=== PATIENT | female | born 1970 | race Caucasian/White ===

== ENCOUNTER 2024-02-29 13:10 | Emergency (ER) | payer BC, SELFPAY ==
[2024-02-29 13:13] VITALS: BP 135/82
--- NOTE | 2024-02-29 13:44 | ED.SKININJ ---
HPI-Injury
General
Chief Complaint: Skin Surface Trauma
Source: patient
Time Seen by Provider: 02/29/24 13:26
History of Present Illness-Injury
Initial Injury comments:
53yo right hand dominant female presenting for evaluation of a left index finger laceration that was sustained <1 hour ago. Patient was hanging a picture frame and accidentally cut her finger on a metal edge. She tried to apply Steri-strips but the
bleeding persisted so she came to the ED. No bleeding on arrival. No paresthesias. Tdap up to date.
Past History
Past History
ED Past Medical History: Psychiatric (takes Lexapro) and Other (Claritin for seasonal allergies)
Social History
Tobacco: Non-smoker
Personal:
Living: with family
Employment: Not employed
Phy Exam
General Physical Exam
General Presentation: well appearing and no apparent distress
General age: appears stated age
General Skin: warm and dry
General Habitus: normal
General Mental: alert
ENT Exam
ENT Exam: normocephalic
[place] Coma Scale
Eye Opening: Spontaneous
Verbal Response: Oriented
Motor Response: Obeys Commands
GCS Total Score: 15
Skin Exam
Skin Exam: normal color, warm/dry and other (Superficial 1cm vertical laceration to the palmar aspect of the left index finger overlying the DIP joint. No active bleeding. ROM of DIP, PIP, and MCP joint intact. No bony tenderness. Cap refill and
sensation intact at distal fingertip.)
Psychiatric Exam
Psychiatric Exam: normal mood/affect
Course
Vital Signs
Initial and Last Documented VS:
Initial Vital Signs
Temp Pulse Resp BP Pulse Ox
99 F 67 18 135/82 99
02/29/24 13:13 02/29/24 13:13 02/29/24 13:13 02/29/24 13:13 02/29/24 13:13
Last Documented Vital Signs
Temp Pulse Resp BP Pulse Ox
99 F 66 18 107/67 98
02/29/24 13:13 02/29/24 13:52 02/29/24 13:52 02/29/24 13:52 02/29/24 13:52
Procedures
Laceration Closure
Left Palmar Second Finger:
Status of Wound: clean
Size of Wound in cm: 1
Description of Wound Edges: sharp
Preparation: cleaned with saline
Wound exploration: explored to base- no FB
Type of Closure: Dermabond-skin glue
MDM/Problems Addressed
Differential Diagnosis Includes:
53yoF here with a L index finger laceration. Small 1cm superficial laceration noted on exam without active bleeding. Digit is neurovascularly intact. No evidence of tendon involvement. No bony tenderness to suggest fracture.
Laceration irrigated with saline. Skin glue and steri-strips applied. Finger splint provided to help with healing. Home wound care discussed. Advised return to the ED with any signs of infection. She was discharged in stable condition.
*Critical Care Note
Total Time (30-74mins, 75-104mins- exclusive of procedures): Not Applicable
ED Attending Note
-
Portions of this chart may have been created with voice recognition software.� Occasional wrong word or��sound alike� substitutions may have occurred due to the inherent limitations of voice recognition software.
Discharge Plan
Departure
Patient Disposition: Home (Routine Discharge)
Date of Disposition: 02/29/24
Time of Disposition: 13:46
Patient with high blood pressure during this ER visit?: No
Discharge Problem:
Laceration of left index finger
Instructions: Laceration Repair With Glue (DC)
Prescriptions:
No Action
ascorbic acid (vitamin C) [Vitamin C] 1,000 MG tablet
1,000 mg PO DAILY
ergocalciferol (vitamin D2) 400 UNIT tablet
400 unit PO DAILY
loratadine 10 MG tablet
10 mg PO DAILY
escitalopram oxalate 10 MG tablet
10 mg PO DAILY
hqnunmjjdzvy-imfz-lhhxc acid [Centrum] 1 EACH tablet
1 ea PO DAILY
cyclobenzaprine 10 MG tablet
10 mg PO TIDPRN PRN (Reason: back pain/spasms) Qty: 15 0RF
Referrals:
Russ Dumont DO [Family Provider] -
Activity Restrictions/Additional Instructions:
The steri-strips should come off on their own in a few days. You may remove the steri-strips if still in place after 1 week.
Return to the ER with any signs of infection (redness, drainage, warmth).
Interventions
Interventions:
*Risk Screen - Suicide Last Done: 02/29/24 13:13
*General Assessment Last Done: 02/29/24 13:13
*Neglect/Abuse Screening Last Done: 02/29/24 13:13
*ED COVID-19 Vaccine History Last Done: 02/29/24 13:52
*Nursing Disposition Last Done: 02/29/24 13:53
ED-Skin Assessment Last Done: 02/29/24 13:29
Discharge Date and Time
Discharge Date/Time: 02/29/24 13:54
Print Language: ROMANIAN
[2024-02-29 13:52] VITALS: BP 107/67
== END 2024-02-29 13:54 | disposition home or self-care (01) ==
LOC: EMR 13:10
PROVIDERS: EMERGENCY PHYSICIAN Emergency Medicine; FAMILY PHYSICIAN Family Medicine
DX: S61.211A Laceration without foreign body of left index finger without damage to nail, initial encounter (principal); W26.8XXA Contact with other sharp object(s), not elsewhere classified, initial encounter
CPT/HCPCS: 12001; 99282

== ENCOUNTER → 2024-04-01 09:50 | Outpatient (REF) | payer BC, SELFPAY | LOC: HWWDC 09:50 | PROVIDERS: ATTENDING PHYSICIAN Obstetrics & Gynecology; FAMILY PHYSICIAN Family Medicine | DX: Z12.31 Encounter for screening mammogram for malignant neoplasm of breast (principal) | CPT/HCPCS: 77063; 77067 ==

== ENCOUNTER → 2024-05-01 14:07 | Outpatient (REF) | payer BC, SELFPAY | LOC: HWRAD 14:07 | PROVIDERS: ATTENDING PHYSICIAN Physician Assistant; FAMILY PHYSICIAN Family Medicine | DX: H20.9 Unspecified iridocyclitis (principal); M25.551 Pain in right hip; M25.552 Pain in left hip; R76.8 Other specified abnormal immunological findings in serum | CPT/HCPCS: 72120; 72202; 73523 ==

== ENCOUNTER → 2024-05-13 12:52 | Outpatient (REF) | payer BC, SELFPAY | LOC: WDC 12:52 | PROVIDERS: ATTENDING PHYSICIAN Obstetrics & Gynecology | DX: R92.343 Mammographic extreme density, bilateral breasts (principal) | CPT/HCPCS: 76641 ==

== ENCOUNTER → 2025-01-22 13:33 | Outpatient (REF) | payer BC, SELFPAY | LOC: DHSLP 13:33 | PROVIDERS: ATTENDING PHYSICIAN Internal Medicine; FAMILY PHYSICIAN Family Medicine | DX: G47.00 Insomnia, unspecified (principal); R06.83 Snoring | CPT/HCPCS: 95810 ==

== ENCOUNTER → 2025-04-03 10:30 | Outpatient (REF) | payer BC, SELFPAY | LOC: HWWDC 10:30 | PROVIDERS: ATTENDING PHYSICIAN Obstetrics & Gynecology; FAMILY PHYSICIAN Family Medicine | DX: Z12.31 Encounter for screening mammogram for malignant neoplasm of breast (principal) | CPT/HCPCS: 77063; 77067 ==